=== PATIENT | male | born 1965 | race African-American/Black ===

== ENCOUNTER 2021-12-22 14:51 | Emergency (ER) | payer OTHER ==
[~2021-12-22] VITALS: Ht 172.7 cm; Wt 81.0 kg
[2021-12-22] MEDS ORDERED: IBUPROFEN 800MG TABLET PO ONE (15:30)
[2021-12-22] MEDS ORDERED: IBUP-2030 MT (16:34)
[2021-12-22 17:07] VITALS: BP 137/69
== END 2021-12-22 17:09 | disposition home or self-care (01) ==
LOC: ER 14:56
DX: S83.8X1A Sprain of other specified parts of right knee, initial encounter (principal); W18.39XA Other fall on same level, initial encounter; Y93.89 Activity, other specified; Y92.89 Other specified places as the place of occurrence of the external cause; Y99.8 Other external cause status
CPT/HCPCS: 73562; 99283; L1830